=== PATIENT | female | born 1960 | race Caucasian/White ===

== ENCOUNTER 2018-09-24 10:25 | Inpatient (IN) | payer OTHER, MEDICAID ==
[~2018-09-24] VITALS: Ht 165.1 cm; Wt 62.6 kg
[~2018-09-24 10:25] MED LIST: ALBU18 IN; BECL0.07 INH; FENO160T8 PO; IPRASOL41 NEB; LANS15CA21 PO; PRAV20TA3 PO; TIOTCAP IN
[2018-09-24] MEDS ORDERED: IPRATROPIUM BROM 0.5 MG/2.5ML INH SOL NEB ONE ×2 (10:45→13:45)
[2018-09-24] MEDS ORDERED: ALBUTEROL SULF 2.5 MG/0.5ML(0.5%) NEB SOLN NEB ONE ×2 (10:45→13:45)
[2018-09-24] MEDS ORDERED: methylPREDNISolone SOD SUCC 125 MG/2 ML VL IV ONE (10:45)
[2018-09-24 11:09] LABS: Basophils # (auto) 0.2 uL; Basophils % (auto) 1.4 % (0.0-2.0); Eosinophils # (auto) 0.2 uL; Eosinophils % (auto) 1.2 % (0.0-7.0); Hematocrit 47.6 % (36.0-46.0); Hemoglobin 16.2 g/dL (12.2-16.2); Lymphocytes # (auto) 2.3 uL; Lymphocytes % (auto) 13.2 % (10.0-50.0); Mean Corpuscular Hemoglobin 30.7 pg (28.0-32.0); Mean Corpuscular Volume 90.1 fL (80.0-100.0); Monocytes % (auto) 5.8 % (0.0-12.0); Neutrophils # (auto) 13.4 uL; Neutrophils % (auto) 78.4 % (37.0-80.0); Nucleated Red Blood Cells % 0.3 %; Platelet Count (auto) 447 10^3/uL (140-450); Red Blood Cells 5.28 10^6/uL (4.0-5.20); Red Cell Distribution Width 13.7 % (11.8-14.3); White Blood Cell 17.2 10^3/uL (4.4-10.8)
[2018-09-24 11:19] LABS: Alanine Aminotransferase 33 U/L (13-56); Albumin 3.7 g/dL (3.4-5.0); Anion Gap 10 (5-15); Blood Urea Nitrogen 12 mg/dL (7-18); Calcium 9.5 mg/dL (8.5-10.1); Carbon Dioxide 19 mmol/L (21-32); Chloride 106 mmol/L (98-107); Glucose 111 mg/dL (74-106); Potassium 4.3 mmol/L (3.5-5.1); Sodium 135 mmol/L (136-145)
[2018-09-24 11:24] LABS: Alkaline Phosphatase 171 U/L (45-117); Aspartate Aminotransferase 23 U/L (15-37); Bilirubin, Total 0.5 mg/dL (0.2-1.0); GFR African American 95 mL/min; GFR Non-African American 78 mL/min; Total Protein 7.7 g/dL (6.4-8.2)
[2018-09-24] MEDS ORDERED: NITROGLYCERIN 0.4 MG SL TAB SL PRN (13:45)
[2018-09-24] MEDS ORDERED: ACETAMINOPHEN 500 MG TAB PO PRN (13:45)
[2018-09-24] MEDS ORDERED: traMADol HCL 50 MG TAB PO PRN (13:45)
[2018-09-24] MEDS ORDERED: LACTULOSE 20Gm/30ML SOLN PO PRN (13:45)
[2018-09-24] MEDS ORDERED: ALBUTEROL SULF 2.5 MG/0.5ML(0.5%) NEB SOLN NEB PRN (13:45)
[2018-09-24] MEDS ORDERED: SODIUM CHLORIDE 0.9% 1,000 ML IV ONE (13:45)
[2018-09-24] MEDS ORDERED: TEMAZEPAM 15 MG CAP PO PRN (13:45)
[2018-09-24] MEDS ORDERED: MORPHINE SULF INJ 2 MG/ML SYRINGE 1ML IV PRN (13:45)
[2018-09-24] MEDS: SODIUM CHLORIDE 0.9% 1,000 ML IV SCH ×2 (14:34→23:55)
[2018-09-24 15:15] VITALS: BP 137/76
[2018-09-24 16:00] VITALS: BP 123/72
--- NOTE | 2018-09-24 16:00 | NUR ---
BIPAP CHECK DONE, PT WAS TRANPORTED FROM ER TO [facility] WITH NO INCIDENT REPORTED. PT HAD CARDIAC MONITORED DURING TRANSPORTED ON 2L NC WITH SPO2 95%. NO DISTRESS NOTED. ALARMS ARE ON AND AUDIBLE TO NURSING STATION. BS ARE COARSE. WILL CONTINUE TO MONITOR PT.
[2018-09-24 16:04] VITALS: BP 127/82
[2018-09-24] MEDS: methylPREDNISolone SOD SUCC 40 MG/ML VL IV SCH ×2 (17:54→23:49)
[2018-09-24] MEDS ORDERED: FOLI1TAB6 PO (17:57)
[2018-09-24] MEDS: IPRATROPIUM BROM 0.5 MG/2.5ML INH SOL NEB SCH (18:09)
[2018-09-24] MEDS: ALBUTEROL SULF 2.5 MG/0.5ML(0.5%) NEB SOLN NEB SCH (18:09)
--- NOTE | 2018-09-24 18:09 | NUR ---
PT REQUESTING TO COME OFF BIPAP TO EAT. PT PLACED ON 3 L NC NO DISTRESS NOTED AT THIS TIME. POX 96% RN AWARE.
--- NOTE | 2018-09-24 19:15 | NUR ---
OPENING SHIFT NOTE ASSUMED CARE, AWAKE AND ORIENTED WITH NO SIGNS OF DISTRESS AND NO COMPLAINTS OF PAIN AT THIS TIME. ON O2 @ 4L/MIN,COARSE LUNG SOUNDS NOTED THROUGHOUT UPPER AND LOWER LOBES, SAT 94%, IV CANNULA AT LEFT ANTECUBITAL INFUSING NS @ 125ML/HR. BED IN LOWEST POSITION WITH SIDE RAILS UP, BED ALARM ON AND CALL LIGHT WITHIN REACH. ENCOURAGED TO CALL IF SHE NEEDS SOMETHING. WILL CONTINUE CARE.
[2018-09-24 20:00] VITALS: BP 103/78
[2018-09-24 21:12] LABS: Urine Bacteria NONE SEEN /hpf (None Seen); Urine Blood TRACE /uL (Negative); Urine Hyaline Cast FEW /lpf (0 - 2); Urine Specific Gravity 1.014 (1.001-1.035); Urine WBC 2 /hpf (0 - 5)
[2018-09-25] VITALS: BP 117/71
[2018-09-25] MEDS: IPRATROPIUM BROM 0.5 MG/2.5ML INH SOL NEB SCH ×4 (01:40→18:03)
[2018-09-25] MEDS: ALBUTEROL SULF 2.5 MG/0.5ML(0.5%) NEB SOLN NEB SCH ×4 (01:40→18:03)
--- NOTE | 2018-09-25 01:50 | NUR ---
PT REQUESTING FOR HER BREATHING TX, PAGED THE RT AND SHIFTED NASAL CANNULA TO BIPAP, SAT 96%. NO DISTRESS NOTED.
--- NOTE | 2018-09-25 02:24 | NUR ---
AM CARE DONE, COMPLETE LINENS CHANGED.
[2018-09-25 03:43] VITALS: BP 122/72
--- NOTE | 2018-09-25 05:56 | NUR ---
PT REMOVED FROM BIPAP AT THIS TIME. MED NEB GIVEN WITH NO ADVERSE RX. PLACE PT ON 2L NC, SPO2 95%, HR 82, RR 24, WITH EXP WHEEZES. WILL CONTINUE TO MONITO PT.
[2018-09-25 06:11] LABS: Hematocrit 43.8 % (36.0-46.0); Hemoglobin 14.7 g/dL (12.2-16.2); Mean Corpuscular Hemoglobin 30.8 pg (28.0-32.0); Mean Corpuscular Hgb Conc. 33.6 g/dL (32.0-36.0); Mean Corpuscular Volume 91.7 fL (80.0-100.0); Platelet Count (auto) 390 10^3/uL (140-450); Red Blood Cells 4.77 10^6/uL (4.0-5.20); Red Cell Distribution Width 13.3 % (11.8-14.3); White Blood Cell 11.5 10^3/uL (4.4-10.8)
[2018-09-25] MEDS: methylPREDNISolone SOD SUCC 40 MG/ML VL IV SCH ×3 (06:18→21:54)
[2018-09-25 06:20] LABS: Basophils % (manual) 0 (0.0-2.0); Blast Cells 0; Eosinophils % (manual) 0 (0-7); Myelocytes % 0; Promyelocytes % 0; Reactive Lymphocytes 0
--- NOTE | 2018-09-25 07:30 | NUR ---
Opening Shift Note Assumed care of patient, awake and alert. No S/S of distress/SOB or pain. Instructed on POC and to call for assist PRN, will continue to monitor for changes Q1hr and PRN.
[2018-09-25 08:00] VITALS: BP 107/76
--- NOTE | 2018-09-25 08:10 | NUR ---
Patient sitting on the bed, still coughing a lot, has wheezing, paged RT for breathing treatment.
--- NOTE | 2018-09-25 08:40 | NUR ---
Patient sitting on the bed, stated that she felt better after breathing treatment given. Provided breakfast tray at this time.
[2018-09-25 08:47] LABS: Band Neutrophils % (manual) 3; Lymphocytes % (manual) 10 (10.0-50.0); Metamyelocytes % 1; Monocytes % (manual) 2 (0-12)
[2018-09-25] MEDS: SODIUM CHLORIDE 0.9% 1,000 ML IV SCH ×3 (08:53→22:59)
--- NOTE | 2018-09-25 09:30 | NUR ---
Patient had 100% of breakfast, still has wheezing but patient tolerated well, on O2 NC 4LPM, RR 26-30/min, O2 saturation 94-96%. Will continue to monitor and care.
--- NOTE | 2018-09-25 09:40 | NUR ---
IV insertion IV access obtained, via clean sterile technique by inserting 22 gauge catheter at left wrist after 1 attempt. IV secured properly. No trauma to site. Patient tolerated well.
[2018-09-25] MEDS: ENOXAPARIN SOD 40 MG/0.4 ML SYRINGE SC SCH (09:53)
[2018-09-25] MEDS: LEVOFLOXACIN 500MG 100 ML IV SCH (09:53)
[2018-09-25] MEDS: PANTOPRAZOLE 40 MG TAB PO SCH (09:53)
[2018-09-25 11:55] VITALS: BP 119/79
--- NOTE | 2018-09-25 12:30 | NUR ---
Lunch tray provided. Her family visit and stay inside the bed. Addendum: 09/25/18 at 1511 by EREN OSUNA RN RN inside the room.
[2018-09-25] MEDS: PROMETHAZINE HCL 25 MG/ML 1ML IV PRN ×2 (14:18→21:55)
--- NOTE | 2018-09-25 14:20 | NUR ---
Patient has vomiting, medication given, sitting up on the bed, no complaining of pain or SOB. Will continue to monitor.
--- NOTE | 2018-09-25 15:11 | NUR ---
Patient lying on the bed, able to take a nap at this time.
--- NOTE | 2018-09-25 15:16 | NUR ---
Sent sample for Influenza A&B to the Lab.
--- NOTE | 2018-09-25 15:30 | NUR ---
Dr. Santillan at bedside, plan of care discussed with patient, patient verbalized understanding, will bring patient to Radiology unit for CT as order.
--- NOTE | 2018-09-25 15:47 | NUR ---
Patient was back to [facility] from [facility]. Will continue to monitor.
[2018-09-25 16:00] VITALS: BP 125/73
--- NOTE | 2018-09-25 16:00 | NUR ---
Dr. Alarcon at bedside, plan of care discussed with patient, Will wait for Dr. Talbot (MD will come tomorrow). Patient made aware, verbalized understanding.
[2018-09-25] MEDS: guaiFENesin-DM 100/10mg/5ml SYR PO PRN ×2 (16:01→21:54)
--- NOTE | 2018-09-25 16:19 | NUR ---
Patient walking with PT, patient's on O2 NC 3 LPM while walking, walk 1 round outside the patient's room, tolerated well. No accident noted. Vital sign after got back to bed: HR 89, RR 23/min, O2 saturation 95%, BP 128/69 mmHg. Will continue to monitor and care.
--- NOTE | 2018-09-25 18:33 | NUR ---
After breathing treatment given, patient had 50% of Dinner, no N/V noted, still sitting up. No complaining of SOB. On O2 NC 3 LPM, O2 saturation 93-94%. Will continue to monitor and care.
--- NOTE | 2018-09-25 18:35 | NUR ---
IV removal at left AC. IV DC'd with sterile technique, catheter fully intact. Pressure dressing applied to site. Patient tolerated procedure well.
--- NOTE | 2018-09-25 19:15 | NUR ---
OPENING SHIFT RECEIVED REPORT FROM DAY SHIFT RN. ASSUMED CARE OF PATIENT. PATIENT IN BED WITH NO SIGNS OR SYMPTOMS OF SOB, PAIN OR DISTRESS. CURRENTLY ON 3L 02 NASAL CANULA, 02 SAT - 96%. UPDATED PATIENT ON PLAN OF CARE. REPOSITIONED FOR COMFORT. BED IN LOWEST POSITION, SIDE RAILS UP X2, CALL LIGHT WITHIN REACH. WILL CONTINUE TO MONITOR.
[2018-09-25 20:00] VITALS: BP 111/75
--- NOTE | 2018-09-25 23:24 | NUR ---
ASSISTED PATIENT ON TO BED LI. NO SIGNS OR SYMPTOMS OF SOB, PAIN OR DISTRESS. PATIENT TOLERATED WELL.
[2018-09-26] VITALS: BP 94/61
[2018-09-26] MEDS: ALBUTEROL SULF 2.5 MG/0.5ML(0.5%) NEB SOLN NEB SCH ×3 (00:13→11:35)
[2018-09-26] MEDS: IPRATROPIUM BROM 0.5 MG/2.5ML INH SOL NEB SCH ×3 (00:13→11:35)
--- NOTE | 2018-09-26 00:25 | NUR ---
ROUNDS PATIENT IN BED SLEEPING WITH NO SIGNS OR SYMPTOMS OF SOB, PAIN OR DISTRESS. CURRENTLY ON 4L 02 NASAL CANULA, 02 SAT - 97%. BED IN LOWEST POSITION, SIDE RAILS UP X2, CALL LIGHT WITHIN REACH. WILL CONTINUE TO MONITOR.
--- NOTE | 2018-09-26 01:10 | NUR ---
ASSISTED PATIENT TO BED LI. SO SIGNS OR SYMPTOMS OF SOB, PAIN OR DISTRESS.
--- NOTE | 2018-09-26 03:45 | NUR ---
ROUNDS PATIENT SLEEPING IN BED WITH NO SIGNS OR SYMPTOMS OF SOB, PAIN OR DISTRESS. CURRENTLY ON 4L 02 NASAL CANULA, 02 SAT - 96%. BED IN LOWEST POSITION, SIDE RAILS UP X2, CALL LIGHT WITH IN REACH. WILL CONTINUE TO MONITOR.
[2018-09-26 04:00] VITALS: BP 114/67
--- NOTE | 2018-09-26 04:35 | NUR ---
MORNING CARE PATIENT REFUSED BED BATH AND GOWN CHANGE. PARTIAL LINEN CHANGE. REPOSITIONED PATIENT FOR COMFORT. NO SIGNS OR SYMPTOMS OF SOB, PAIN OR DISTRESS. BED IN LOWEST POSITION, SIDE RAILS UP X2, CALL LIGHT WITHIN REACH. WILL CONTINUE TO MONITOR.
[2018-09-26 05:17] LABS: Basophils # (auto) 0.1 uL; Basophils % (auto) 0.3 % (0.0-2.0); Eosinophils # (auto) 0 uL; Hematocrit 41.6 % (36.0-46.0); Hemoglobin 13.9 g/dL (12.2-16.2); Lymphocytes # (auto) 0.8 uL; Lymphocytes % (auto) 4.8 % (10.0-50.0); Mean Corpuscular Hemoglobin 30.2 pg (28.0-32.0); Mean Corpuscular Hgb Conc. 33.3 g/dL (32.0-36.0); Mean Corpuscular Volume 90.7 fL (80.0-100.0); Monocytes # (auto) 0.5 uL; Neutrophils # (auto) 15.5 uL; Neutrophils % (auto) 91.9 % (37.0-80.0); Platelet Count (auto) 394 10^3/uL (140-450); Red Blood Cells 4.58 10^6/uL (4.0-5.20); Red Cell Distribution Width 13.6 % (11.8-14.3); White Blood Cell 16.9 10^3/uL (4.4-10.8)
[2018-09-26 05:39] LABS: BUN/Creatinine Ratio 16.9; Calcium 9.3 mg/dL (8.5-10.1); Potassium 3.7 mmol/L (3.5-5.1)
[2018-09-26] MEDS: SODIUM CHLORIDE 0.9% 1,000 ML IV SCH (06:45)
--- NOTE | 2018-09-26 07:00 | NUR ---
END OF SHIFT PATIENT IN BED WATCHING TV. NO SIGNS OR SYMPTOMS OF SOB, PAIN OR DISTRESS. CURRENTLY ON 4L 02 NASAL CANULA, 02 SAT - 93%. PATIENT CONTINUES TO COUGH AND PRODUCE NO SPUTUM. REPOSITIONED FOR COMFORT. BED IN LOWEST POSITION, SIDE RAILS UP X2, CALL LIGHT WITHIN REACH. WILL ENDORSE CARE TO DAY SHIFT RN.
[2018-09-26 09:30] VITALS: BP 116/76
[2018-09-26] MEDS: ENOXAPARIN SOD 40 MG/0.4 ML SYRINGE SC SCH (09:36)
[2018-09-26] MEDS: methylPREDNISolone SOD SUCC 40 MG/ML VL IV SCH (09:36)
[2018-09-26] MEDS: guaiFENesin-DM 100/10mg/5ml SYR PO PRN (09:36)
[2018-09-26] MEDS: PROMETHAZINE HCL 25 MG/ML 1ML IV PRN (09:37)
[2018-09-26] MEDS: LEVOFLOXACIN 500MG 100 ML IV SCH (09:39)
[2018-09-26] MEDS: PANTOPRAZOLE 40 MG TAB PO SCH (09:39)
[2018-09-26 09:52] VITALS: BP 116/76
--- NOTE | 2018-09-26 09:58 | NUR ---
Respiratory note: PATIENT PLACED ON BIPAP FOR RESPIRATORY DISTRESS. UPON ASSESSMENT SHE WAS NOTED TO BE SOB AND HAVE AN INCREASE WOB. LUNG SOUNDS WERE WET CRACKLES; FLUID OVERLOAD SUSPECTED AND REPORTED TO SHEILA TAYLOR. PATIENT PLACED ON B1 BIPAP WITH THE ABOVE CHARTED SETTINGS AND FITTED WITH A MEDIUM FULL FACE MASK. BIPAP PLUGGED INTO RED OUTLET AND ALL ALARMS ARE SET AND AUDIBLE. WILL CONTINUE TO ASSESS PATIENT WELL BIPAP FUNCTION.
--- NOTE | 2018-09-26 10:11 | NUR ---
Patient was jsut placed on Bipap by RN. Attempt P.T. later.
--- NOTE | 2018-09-26 10:33 | NUR ---
Respiratory note: PATIENT REMOVED FROM BIPAP AT THIS TIME. SHE STATED SHE FELT MUCH BETTER AND JUST NEEDED TO COUGH UP SOME MUCOUS. SHE WAS SHOWING NO SIGNS OF RESPIRATORY DISTRESS AND WAS PLACED BACK ON 2LPM NASAL CANNULA. SHEILA TAYLOR MADE AWARE OF CHANGE.
[2018-09-26] MEDS ORDERED: LEVO500T21 PO (13:17)
[2018-09-26] MEDS ORDERED: DEXT1SYP9 PO (13:17)
[2018-09-26] MEDS ORDERED: PRED-559 PO (13:17)
[2018-09-26 15:48] VITALS: BP 92/52
--- NOTE | 2018-09-26 15:56 | NUR ---
Faxed ss order for HH to [facility]
--- NOTE | 2018-09-26 17:20 | NUR ---
Discharge instructions given as ordered to patient and son, Carlos. Encourage to follow up with PMD as instructed. All questions and concerns addressed. Patient verbalized understanding. IV removed with catheter intact, pressure dressing applied. Patient taken to vehicle via wheelchair with all personal belongings, accompanied by staff and family member. No distress noted at time of departure.
== END 2018-09-26 18:15 | disposition home health service (06) | DRG 189 ==
LOC: EDBD 10:25 → ER 10:25 → DOU IN ICU 14:21
PROVIDERS: ADMIT Internal Medicine; ATTEND Internal Medicine
PROC: 5A09357 Assistance with Respiratory Ventilation, Less than 24 Consecutive Hours, Continuous Positive Airway Pressure (ICD-10-PCS; principal; 2018-09-24)
PROC: 5A09357 Assistance with Respiratory Ventilation, Less than 24 Consecutive Hours, Continuous Positive Airway Pressure (ICD-10-PCS; 2018-09-25)
PROC: 5A09357 Assistance with Respiratory Ventilation, Less than 24 Consecutive Hours, Continuous Positive Airway Pressure (ICD-10-PCS; 2018-09-26)
DX: J96.21 Acute and chronic respiratory failure with hypoxia (principal); J44.1 Chronic obstructive pulmonary disease with (acute) exacerbation; E78.5 Hyperlipidemia, unspecified; K21.9 Gastro-esophageal reflux disease without esophagitis; D72.829 Elevated white blood cell count, unspecified; M43.8X4 Other specified deforming dorsopathies, thoracic region; F17.210 Nicotine dependence, cigarettes, uncomplicated; R11.2 Nausea with vomiting, unspecified; K44.9 Diaphragmatic hernia without obstruction or gangrene; B18.2 Chronic viral hepatitis C; F41.9 Anxiety disorder, unspecified; Z74.01 Bed confinement status; Z80.49 Family history of malignant neoplasm of other genital organs; Z82.49 Family history of ischemic heart disease and other diseases of the circulatory system; Z85.42 Personal history of malignant neoplasm of other parts of uterus; Z90.710 Acquired absence of both cervix and uterus; Z99.81 Dependence on supplemental oxygen; Z88.0 Allergy status to penicillin; Z88.2 Allergy status to sulfonamides
CPT/HCPCS: 36415; 36600; 71045; 74176; 80048; 80053; 81001; 82805; 84484; 85007; 85025; 85027; 87070; 87081; 87205; 87804; 93005; 94640; 94660; 96374; G0378; J1956